=== PATIENT | male | born 1985 | race Caucasian/White ===

== ENCOUNTER → 2025-07-25 09:22 | Outpatient (BNVA) | payer MEDICAID, SELFPAY | PROVIDERS: Visit Provider Thoracic Surgery (Cardiothoracic Vascular Surgery) | DX: I96 Gangrene, not elsewhere classified (principal); L89.622 Pressure ulcer of left heel, stage 2 | CPT/HCPCS: 97597; 99203 ==

== ENCOUNTER → 2025-07-31 14:01 | Outpatient (BNVA) | payer MEDICAID, SELFPAY | PROVIDERS: Visit Provider Podiatrist Foot & Ankle Surgery | DX: M79.673 Pain in unspecified foot (principal); L97.422 Non-pressure chronic ulcer of left heel and midfoot with fat layer exposed; M86.8X7 Other osteomyelitis, ankle and foot | CPT/HCPCS: 73650 ==